=== PATIENT | male | born 1975 | race Caucasian/White ===

== ENCOUNTER → 2016-05-20 | Outpatient (CLI) | payer OTHER ==
[~2016-05-20] MED LIST: CLR10 PO
== END | disposition home or self-care (01) ==
LOC: C.PATHSPEC 17:49
PROVIDERS: ATTEND Urology
DX: Z30.2 Encounter for sterilization (principal)

== ENCOUNTER → 2016-10-12 | Outpatient (CLI) | payer OTHER | END | disposition home or self-care (01) | LOC: C.LABSPEC 17:09 | PROVIDERS: ATTEND Nurse Practitioner Family | DX: N45.3 Epididymo-orchitis (principal) ==